=== PATIENT | male | born 1965 | race Caucasian/White ===

== ENCOUNTER → 2023-05-26 14:45 | Outpatient (REF) | payer BC, SELFPAY | LOC: HWRAD 14:45 | PROVIDERS: ATTENDING PHYSICIAN Internal Medicine Hematology & Oncology; FAMILY PHYSICIAN Family Medicine | DX: C81.92 Hodgkin lymphoma, unspecified, intrathoracic lymph nodes (principal); D68.00 Von Willebrand disease, unspecified; C44.91 Basal cell carcinoma of skin, unspecified; R79.1 Abnormal coagulation profile; Z85.71 Personal history of Hodgkin lymphoma | CPT/HCPCS: 70491; 71260; Q9967 ==

== ENCOUNTER 2023-06-23 06:08 | Day surgery (SDC) | payer BC, SELFPAY ==
[2023-06-23] VITALS (10 sets, daily range): BP systolic 113–134; BP diastolic 79–94; BMI 30.3
[2023-06-23 06:48] LABS: Hematocrit 37.4 % (39.0-52.0); Hemoglobin 13.2 g/dL (13.0-18.0); Mean Corp Hgb Conc. 35.3 g/dL (33.0-37.0); Mean Corpuscular Hgb 31.7 pg (27.0-31.0); Mean Corpuscular Volume 89.7 fL (80.0-94.0); Platelet Count 264 10^3/uL (130-400); Red Blood Cell Count 4.17 10^6/uL (4.70-6.10); White Blood Cell Count 6.7 10^3/uL (4.8-10.8)
[2023-06-23] MEDS: NSS 304 ML IV (06:58)
[2023-06-23 07:05] LABS: ALT (SGPT) 21 U/L (0-50); AST (SGOT) 23 U/L (17-59); Albumin 4.2 g/dl (3.5-5.0); Alkaline Phosphatase 62 U/L (38-126); Blood Urea Nitrogen 19 mg/dl (9-20); Calcium 9.1 mg/dl (8.4-10.2); Carbon Dioxide 25 mmol/L (22-30); Chloride 109 mmol/L (98-107); Estimated Creatinine Clearance 113 ml/min; Glucose 104 mg/dl (70-99); Potassium 3.9 mmol/L (3.5-5.1); Sodium 139 mmol/L (135-145); Total Bilirubin 0.4 mg/dl (0.2-1.3); Total Protein 7.2 g/dl (6.3-8.2); eGFR > 60.00
[2023-06-23] MEDS: DDAVP 55 MCG IV (08:08)
--- NOTE | 2023-06-23 09:20 | ITS.CL.CATH ---
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
Cardiac Catheterization
Procedure Report:
LEFT HEART CATHETERIZATION
Date of Procedure: June 23, 2023
Referring: Dr. Angelo Bennett
PROCEDURES:
1. Left heart catheterization with coronary and single-plane left ventriculography
INDICATION: This is a 58-year-old gentleman with a complex past medical history. He tells me that approximately 19 years ago he was diagnosed with Hodgkin's lymphoma and received 3 cycles of ABVD chemotherapy and mantle radiation. He has a history
of of chronic hepatitis C and congenital von Willebrand's disease. He has known coronary artery disease and in September 2014 was referred for coronary angiography finding a 95% proximal LAD stenosis and tandem 90% and 80% mid RCA stenosis. He was seen
by CT surgery and felt to be a better candidate for PCI with bare metal stents to avoid tank terminal gauger dual antiplatelet therapy. He returned the following day for stenting of the LAD with a 3.5 x 12 mm Vision bare-metal stent and successful stenting of
the mid RCA with a 3.5 x 28 mm Vision stent. He had done well but reported feeling poorly and an increase dyspnea and neck discomfort while exercising. Symptoms have been present at least for 3-4 months but had significantly worsened over the past
2 months.
He had followed with Dr. Walker at [facility]. He requires DDAVP before invasive procedures.
ACCESS: Right radial artery, 6 Grenadian sheath
HEMODYNAMICS : (mmHg)
AO (s/d) : 119/81
LV (s/d) : 120/13
LVEDP : 19
CORONARY FINDINGS
DOMINANCE: Right
LEFT MAIN: Normal
LEFT ANTERIOR DESCENDING: The LAD arises normally from the left main. The stent in the mid LAD is widely patent with diffuse luminal irregularities including 60-65% mid LAD stenosis. The remainder of the LAD has a diffuse luminal irregularities
but no high-grade focal obstructive stenosis. The distal LAD wraps around the apex.
CIRCUMFLEX: The circumflex is a medium caliber nondominant vessel. There is a 50% proximal circumflex stenosis supplying a medium caliber OM1 and terminating in a medium caliber OM 2
RIGHT CORONARY ARTERY: The right coronary artery is occluded/subtotally occluded within the midportion of the previously placed stent. Sluggish antegrade flow is noted. Well-developed the left to right collaterals are also appreciated from the
circumflex and LAD
VENTRICULOGRAPHY: Left ventriculography was performed in an JOE projection. The digital single-plane left ventricular ejection fraction is estimated at 50-55%
RADIATION SUMMARY: Fluoro Time (min): 4.3, Dose (mGy): 275, DAP (Gy.cm2) : 30
Closure Device: TR band
CONCLUSIONS
1. Coronary artery disease with chronic total occlusion of the RCA collateralized left to right. Symptoms have significantly worsened (per family) over the past 2 months but had been present to some degree even longer. The LAD stent is patent
with moderate LAD disease beyond the stented segment.
2. Preserved left ventricular systolic function
3. Complex hematologic history:
Congenital von Willebrand's disease: DDAVP administered prior to catheterization at a dose of 0.3 mcg/kg over 20-30 min (max dose 20 mcg/dose)
Hodgkin's lymphoma s/p ABVD chemotherapy and XRT (details of mantle radiation are not known).
In the past he was felt to be high bleeding risk for chronic use of dual antiplatelet therapy. Bare metal stents were placed to minimize duration of dual antiplatelet therapy.
RECOMMENDATIONS
1. Will discuss with CT surgery to determine candidacy for surgical revascularization of the right coronary artery, left anterior descending, +/- circumflex / OM vs attempted PCI of the RCA with anticipated prolonged dual antiplatelet therapy for 6
or preferably 12 months given existing stent with treatment of restenotic lesion.
Copy to: Dr. Angelo Bennett
[2023-06-23] MEDS: NSS 1000 IV (09:25)
== END 2023-06-23 13:30 | disposition home or self-care (01) ==
LOC: CATH 06:08
PROVIDERS: ATTENDING PHYSICIAN Internal Medicine Interventional Cardiology; CONSULT PHYSICIAN Thoracic Surgery (Cardiothoracic Vascular Surgery); FAMILY PHYSICIAN Family Medicine; OTHER PHYSICIAN Internal Medicine Cardiovascular Disease
DX: C81.90 Hodgkin lymphoma, unspecified, unspecified site (principal); B18.2 Chronic viral hepatitis C; D68.00 Von Willebrand disease, unspecified; I25.82 Chronic total occlusion of coronary artery; Z95.5 Presence of coronary angioplasty implant and graft
CPT/HCPCS: 80053; 85027; 93306; 93458; C1894; J2597; Q9967

== ENCOUNTER → 2024-01-29 08:21 | Outpatient (REF) | payer BC, SELFPAY ==
[2024-01-29 10:32] LABS: Blood Urea Nitrogen 16 mg/dl (9-20); Calcium 9.6 mg/dl (8.4-10.2); Carbon Dioxide 28 mmol/L (22-30); Chloride 103 mmol/L (98-107); Glucose 100 mg/dl (70-99); Potassium 5.1 mmol/L (3.5-5.1); Sodium 139 mmol/L (135-145); eGFR > 60.00
[2024-01-29 10:58] LABS: PSA, Total - Screen 1.81 ng/ml (0.0-4.0)
== END ==
LOC: REG 08:21
PROVIDERS: ATTENDING PHYSICIAN Urology; FAMILY PHYSICIAN Family Medicine; OTHER PHYSICIAN Internal Medicine Hematology & Oncology
DX: R31.1 Benign essential microscopic hematuria (principal); Z80.42 Family history of malignant neoplasm of prostate; Z12.5 Encounter for screening for malignant neoplasm of prostate
CPT/HCPCS: 36415; 80048; G0103

== ENCOUNTER → 2024-04-20 08:23 | Outpatient (REF) | payer BC, SELFPAY ==
[2024-04-20 10:11] LABS: HDL Cholesterol 89 mg/dl; LDL Cholesterol, Calculated 61 mg/dl; Total Cholesterol 176 mg/dl (50-199); Triglyceride 132 mg/dl (10-149); Very Low Density Lipoprotein 26 mg/dl (0-30)
[2024-04-20 10:27] LABS: Free T4 0.78 ng/dl (0.78-2.19)
[2024-04-20 10:41] LABS: PSA, Total - Screen 1.86 ng/ml (0.0-4.0); TSH 3.28 uIU/ml (0.47-4.68)
== END ==
LOC: REG 08:23
PROVIDERS: ATTENDING PHYSICIAN Family Medicine; REFERRING PHYSICIAN Internal Medicine Hematology & Oncology
DX: E03.9 Hypothyroidism, unspecified (principal); E78.5 Hyperlipidemia, unspecified; N40.0 Benign prostatic hyperplasia without lower urinary tract symptoms
CPT/HCPCS: 36415; 80061; 84439; 84443; G0103

== ENCOUNTER 2024-10-27 20:31 | Observation (INO) | payer BC, SELFPAY ==
[2024-10-27] VITALS (10 sets, daily range): BP systolic 111–154; BP diastolic 79–104; PULSE 77–92; BMI 30.6; BMI 29.7
[2024-10-27 15:56] LABS: Hematocrit 39.9 % (39.0-52.0); Hemoglobin 13.2 g/dL (13.0-18.0); Mean Corp Hgb Conc. 33.1 g/dL (33.0-37.0); Mean Corpuscular Volume 92.1 fL (80.0-94.0); Nucleated Red Blood Cells % 0 % (-); Platelet Count 240 10^3/uL (130-400); Red Cell Dist. Width 13.2 % (11.5-14.5)
[2024-10-27 16:20] LABS: ALT (SGPT) 30 U/L (0-50); AST (SGOT) 29 U/L (17-59); Albumin 4.5 g/dl (3.5-5.0); Alkaline Phosphatase 60 U/L (38-126); Blood Urea Nitrogen 22 mg/dl (9-20); Calcium 9.0 mg/dl (8.4-10.2); Carbon Dioxide 25 mmol/L (22-30); Chloride 108 mmol/L (98-107); Estimated Creatinine Clearance > 125 ml/min; Glucose 90 mg/dl (70-99); Potassium 4.1 mmol/L (3.5-5.1); Sodium 135 mmol/L (135-145); Total Protein 7.4 g/dl (6.3-8.2); eGFR > 60.00
--- NOTE | 2024-10-27 18:06 | ED.GENMED ---
History of Present Illness
<Rosalva Fenton PA-C - Last Filed: 10/28/24 22:20>
General
Chief Complaint: Dizziness
Source: patient
Exam Limitations: none
Time Seen by Provider: 10/27/24 16:44
Nursing documentation reviewed up to this point in time: agreed with
History of Present Illness
History of Present Illness:
Patient is a 59-year-old male with history CAD, hyperlipidemia, hypothyroid who presents to the emergency department with acute onset dizziness which began at 11 AM today. Patient states he was sitting at his computer while at work when he had
acute onset dizziness, described as a sensation of movement. Symptoms seem to persist and he went out to his car to lay down while he felt that he was also quite off balance.
He denies any true spinning sensation however does report having a strong sensation of movement. He does not feel that symptoms were heavily exacerbated by movements of his head. He denies any associated headache, neck pain, visual changes,
numbness/tingling or weakness in extremities. He denies any difficulties talking or swallowing. He denies any lightheadedness. He denies any changes in his hearing.
Patient denies any recent trauma or inciting injury.
Patient has a significant cardiac history with 5 stents. No history of similar symptoms that he was experiencing today. However�his mom does have a history of vertigo.
Past History
<Rosalva Fenton PA-C - Last Filed: 10/28/24 22:20>
Past History
ED Past Medical History: CAD, Other (Von Willebrand's disease.), Other (Hepatitis C) and Other (Hodgkin's disease)
ED Past Surgical History: Other
Social History
Tobacco: Non-smoker
Alcohol: Occasional
Drug: None
Personal:
Living: with family
Employment: Employed
Family History
Family History: Other (Noncontributory)
Review of Systems
<Rosalva Fenton PA-C - Last Filed: 10/28/24 22:20>
Review of Systems
Allergies reviewed?: Yes
All Other Systems: ROS reviewed and negative except as documented in HPI and ROS
Phy Exam
<Rosalva Fenton PA-C - Last Filed: 10/28/24 22:20>
Physical Exam
Physical Exam:
Vitals: Hypertensive, otherwise vital signs stable. Afebrile
General: Patient is well appearing, no acute distress
Skin: Warm and dry, no rashes or lesions
Head: Normocephalic, atraumatic
Eyes: Sclera nonicteric. EOMs intact. No nystagmus.
Throat: Protecting airway
Neck: Normal ROM, no cervical spine tenderness, no meningismus
Cardiac: Regular rate and rhythm, no murmurs.
Pulm: Normal respiratory effort, no wheezes, rales, rhonchi heard on exam
Abdomen: Abdomen soft nontender.
Extremities: No evidence of cyanosis or edema. Strength 5/5 in bilateral upper and lower extremities. Sensation intact.
Neuro: AAOx3. CN II-XII grossly intact. No facial droop or asymmetry. Fluent speech. No focal neurologic deficits. Mildly unsteady gait.
Psychiatric: Normal affect.
Course
<Rosalva Fenton PA-C - Last Filed: 10/28/24 22:20>
Orders/Labs/Results
Orders:
Orders
10/27/24 14:29
EKG [Electrocardiogram (*1)] Urgent
Reason for Study: Vertigo / Dizzy
EKG- Treatment ONCE
10/27/24 15:50
CBC/With Diff [Complete Blood Count/With Diff] Urgent
Comprehensive Metabolic Panel Urgent
Glycohemoglobin (HgbA1c) Urgent
10/27/24 17:08
CT Head W/o Iv Contrast Urgent
Comment:
Reason For Exam: Dizziness, ataxia
0.9% Sodium Chloride 1000 ml [Nss] 1,000 ml IV BOLUS
10/27/24 17:36
Meclizine [Antivert] 12.5 mg PO NOW STA
10/27/24 20:03
Admit/Transfer Patient As Directed
Co-Sign Provider:
Level of Care: Observation services
Assign to:: Telemetry
Physician / Group: [email or web address]
Diagnosis: Abrupt onset dizziness and ataxia, eval for CVA/TIA
Reason for Telemetry: CVA/TIA
Date to Stop Telemetry: 10/30/24
Time to Stop Telemetry: 11:00
Reason for Hospitalization: Abrupt onset dizziness and ataxia.
10/27/24 20:04
Code Status As Directed
Resuscitation Status: Full Code
10/27/24 21:24
Acetaminophen [Tylenol/Feverall] 650 mg RECTAL Q4HPRN PRN
Acetaminophen [Tylenol] 650 mg PO Q4HPRN PRN
10/27/24 21:24
Case Management Consult ONCE
Case Management Consult: Discharge Planning
Comment: stroke/tia
DIETARY IP CONSULT Routine
Reason for Consult: stroke/TIA
NEUROLOGY CONSULT Urgent
Consulting Provider: Jules Castañeda
Was physician already notified: Yes
Reason for consult: Abrupt onset dizziness and ataxia.R/O CVA/TIA
Weed Thinner Urgent
Activity As Directed
Activity Level: With Assistance
NIH Stroke Scale As Directed
Directions: Per protocol
Comment: every shift and with any change in condition or mental status
Neurological Checks As Directed
Frequency: q4h
Additional Instructions:: q4h x 24h upon admission to the floor, then qshift & with any change in condition
and mental status
Orthostatic Vital Signs As Directed
Orthostatic VS Frequency: Daily
Comment: times two only
Patient Education As Directed
Type: Stroke education packet
Comment: provide to patient and family
Pneumatic Compression Sleeves As Directed
Type: Knee high
Vital Signs As Directed
Frequency: Per unit guidelines
Ot Eval And Treat Routine
Pt Eval And Treat Routine
Activity Level: With Assistance
Speech Therapy Eval & Treat Routine
DX Deep Vein Thrombosis Video Routine
10/28/24 07:03
Cardiovascular Evaluation IN AM
VerifyNow Aspirin IN AM
Pt on daily regimen OR been given initial dose of aspirin?: Yes
10/28/24 08:00
Aspirin Chewable [Low Strength Aspirin] 81 mg PO DAILY
10/28/24 15:50
Ferritin Urgent
Comment: ADD ON
Folate Urgent
Comment: ADD ON
TSH Reflex To Free T4 Urgent
Comment: ADD ON
Vitamin B12 Urgent
Comment: ADD ON
10/28/24 18:00
Atorvastatin [Lipitor] 40 mg PO QPM
10/30/24 11:00
DC Protocol for Telemetry ONCE
Abnormal Lab Results
10/27/24
15:50
RBC 4.33 L 10^6/uL
(4.70-6.10)
Absolute Monos (auto) 0.7 H 10^3/uL
(0.1-0.6)
Monocytes % 9.6 H %
(1.7-9.3)
Chloride 108 H mmol/L
(98-107)
BUN 22 H mg/dl
(9-20)
10/27/24 15:50
10/27/24 15:50
Vital Signs
Initial and Last Documented VS:
Initial Vital Signs
Temp Pulse Resp BP Pulse Ox
98.9 F 82 17 141/93 98
10/27/24 14:34 10/27/24 14:34 10/27/24 14:34 10/27/24 14:34 10/27/24 14:34
Last Documented Vital Signs
Temp Pulse Resp BP Pulse Ox
97.7 F 75 16 110/76 96
10/29/24 03:36 10/29/24 03:36 10/29/24 03:36 10/29/24 03:36 10/29/24 03:36
<Deep Dias MD - Last Filed: 10/29/24 07:56>
Orders/Labs/Results
Orders:
Orders
10/27/24 14:29
EKG [Electrocardiogram (*1)] Urgent
Reason for Study: Vertigo / Dizzy
EKG- Treatment ONCE
10/27/24 15:50
CBC/With Diff [Complete Blood Count/With Diff] Urgent
Comprehensive Metabolic Panel Urgent
Glycohemoglobin (HgbA1c) Urgent
10/27/24 17:08
CT Head W/o Iv Contrast Urgent
Comment:
Reason For Exam: Dizziness, ataxia
0.9% Sodium Chloride 1000 ml [Nss] 1,000 ml IV BOLUS
10/27/24 17:36
Meclizine [Antivert] 12.5 mg PO NOW STA
10/27/24 20:03
Admit/Transfer Patient As Directed
Co-Sign Provider:
Level of Care: Observation services
Assign to:: Telemetry
Physician / Group: [email or web address]
Diagnosis: Abrupt onset dizziness and ataxia, eval for CVA/TIA
Reason for Telemetry: CVA/TIA
Date to Stop Telemetry: 10/30/24
Time to Stop Telemetry: 11:00
Reason for Hospitalization: Abrupt onset dizziness and ataxia.
10/27/24 20:04
Code Status As Directed
Resuscitation Status: Full Code
10/27/24 21:24
Acetaminophen [Tylenol/Feverall] 650 mg RECTAL Q4HPRN PRN
Acetaminophen [Tylenol] 650 mg PO Q4HPRN PRN
10/27/24 21:24
Case Management Consult ONCE
Case Management Consult: Discharge Planning
Comment: stroke/tia
DIETARY IP CONSULT Routine
Reason for Consult: stroke/TIA
NEUROLOGY CONSULT Urgent
Consulting Provider: Jules Castañeda
Was physician already notified: Yes
Reason for consult: Abrupt onset dizziness and ataxia.R/O CVA/TIA
Weed Thinner Urgent
Activity As Directed
Activity Level: With Assistance
NIH Stroke Scale As Directed
Directions: Per protocol
Comment: every shift and with any change in condition or mental status
Neurological Checks As Directed
Frequency: q4h
Additional Instructions:: q4h x 24h upon admission to the floor, then qshift & with any change in condition
and mental status
Orthostatic Vital Signs As Directed
Orthostatic VS Frequency: Daily
Comment: times two only
Patient Education As Directed
Type: Stroke education packet
Comment: provide to patient and family
Pneumatic Compression Sleeves As Directed
Type: Knee high
Vital Signs As Directed
Frequency: Per unit guidelines
Ot Eval And Treat Routine
Pt Eval And Treat Routine
Activity Level: With Assistance
Speech Therapy Eval & Treat Routine
DX Deep Vein Thrombosis Video Routine
10/28/24 07:03
Cardiovascular Evaluation IN AM
VerifyNow Aspirin IN AM
Pt on daily regimen OR been given initial dose of aspirin?: Yes
10/28/24 08:00
Aspirin Chewable [Low Strength Aspirin] 81 mg PO DAILY
10/28/24 15:50
Ferritin Urgent
Comment: ADD ON
Folate Urgent
Comment: ADD ON
TSH Reflex To Free T4 Urgent
Comment: ADD ON
Vitamin B12 Urgent
Comment: ADD ON
10/28/24 18:00
Atorvastatin [Lipitor] 40 mg PO QPM
10/30/24 11:00
DC Protocol for Telemetry ONCE
Abnormal Lab Results
10/27/24
15:50
RBC 4.33 L 10^6/uL
(4.70-6.10)
Absolute Monos (auto) 0.7 H 10^3/uL
(0.1-0.6)
Monocytes % 9.6 H %
(1.7-9.3)
Chloride 108 H mmol/L
(98-107)
BUN 22 H mg/dl
(9-20)
10/27/24 15:50
10/27/24 15:50
Vital Signs
Initial and Last Documented VS:
Initial Vital Signs
Temp Pulse Resp BP Pulse Ox
98.9 F 82 17 141/93 98
10/27/24 14:34 10/27/24 14:34 10/27/24 14:34 10/27/24 14:34 10/27/24 14:34
Last Documented Vital Signs
Temp Pulse Resp BP Pulse Ox
97.7 F 75 16 110/76 96
10/29/24 03:36 10/29/24 03:36 10/29/24 03:36 10/29/24 03:36 10/29/24 03:36
<Rosalva Fenton PA-C - Last Filed: 10/28/24 22:20>
MDM/Problems Addressed
Differential Diagnosis Includes:
Not limited to: BPPV, labyrinthitis, vestibular neuritis, M�ni�re's disease, CVA/TIA
MDM/Problems Addressed:
59-year-old male with significant cardiovascular disease w/ 5 stents who presents with acute onset dizziness and ataxia, which occurred earlier today while at work. There was no clear positional component. No episodes of vomiting. No other
neurological symptoms. No history of similar symptoms.
Symptoms minimally resolved by arrival to ED/my evaluation although still feels �off�.
Vitals and physical exam as above.
Basic labs were sent prior to my evaluation without any clinically significant abnormalities.
Differential broad and includes peripheral vertigo causes including BPPV, labyrinthitis, Meniere's disease vs central etiology of vertigo such as CVA/TIA.
Will treat with IV fluids and meclizine. We will check head CT and reassess.
Update: head CT without acute findings. On reassessment � patient reports some improvement however not complete improvement. At this point � cause of dizziness unknown. Possibly peripheral, however, not clearly positional and patient has significant
vascular risk factors� feel that this warrants inpatient management and further work up. Patient accepted to hospital service in stable condition.
Chronic conditions affecting care:
CAD w/ stents, remote history of lymphoma
Acute Exacerbation and/or Progression of Chronic Illness:
N/A
<Rosalva Fenton PA-C - Last Filed: 10/28/24 22:20>
*Radiology
Radiology exam reviewed: preliminary read by ED provider (Head CT reviewed by sd-no acute abnormalities) and radiology read reviewed
*Pulse Oximetry
SaO2: 99
Oxygen Mode of Delivery: Room air
Patient hypoxic: no
*EKG
Interpreted by ED Provider?: Yes
EKG Intrepretation Date: 10/27/24
Interpretation: normal
Comparison EKG: no changes
Heart Rate: 68
Rate: normal
Rhythm: sinus
[place]: normal axis
Interval: normal QT interval
QRS Pattern: normal QRS
Ischemia: no ischemia
*Film Waxer Interpretation
Rate: normal
Interpretation: normal
Heart Rate: 72
Rhythm: sinus
*Critical Care Note
Total Time (30-74mins, 75-104mins- exclusive of procedures): Not Applicable
ED Attending Note
<Rosalva Fenton PA-C - Last Filed: 10/28/24 22:20>
-
Portions of this chart may have been created with voice recognition software.� Occasional wrong word or��sound alike� substitutions may have occurred due to the inherent limitations of voice recognition software.
<Deep Dias MD - Last Filed: 10/29/24 07:56>
ED Attending Note
Patient seen and examined by attending physician: Yes
I performed the substantive portion of visit, reviewed & personally made and approve the management plan that is documented in note by myself or LANRE.: Yes
ED Attending Note:
59-year-old male relatively sudden onset of disequilibrium while at work late this morning. No unusual headache no double vision blurry vision speech issues. Some trouble with his gait. No clear-cut positional component. History of CAD with 5
stents.
GENERAL: Alert and oriented in no apparent distress
EYE: Orbits normal. Extraocular muscles intact. No obvious nystagmus
NECK: Supple
LUNGS: No distress
NEUROLOGICAL: Alert and oriented , cranial nerves II through XII intact. Speech normal. [id number] normal. No drift.
SKIN: Warm and dry
PSYCH: Normal and appropriate interaction.
Patient describing relatively sudden onset of disequilibrium. Neurologic exam within normal limits. Has 5 stents. Clearly has risk factors for vascular disease. This may be a labyrinthitis or inner ear issue although with risk factors sudden
onset and no clear positional component along with some ongoing ataxia warrants inpatient workup
Discharge Plan
Departure
Patient Disposition: Admit
Date of Disposition: 10/27/24
Time of Disposition: 19:22
Presentation/result/management discussed w/ accepting MD/DO: Hospitalist
Discharge Problem:
Dizziness, Ataxia
Interventions
Interventions:
*Risk Screen - Suicide Last Done: 10/27/24 14:34
*General Assessment Last Done: 10/27/24 14:34
*Neglect/Abuse Screening Last Done: 10/27/24 14:34
*ED- Fall Risk Assessment Last Done: 10/27/24 14:34
*ED COVID-19 Vaccine History Last Done: 10/27/24 20:53
*Nursing Disposition Last Done: 10/27/24 21:40
ED- Neurological Assessment Last Done: 10/27/24 17:30
ED- Cardiac Assessment Last Done: 10/27/24 17:30
ED Swallowing Screen Last Done: 10/27/24 17:30
Discharge Date and Time
Discharge Date/Time: 10/27/24 21:25
[2024-10-27] MEDS: NSS 1000 IV (18:07)
[2024-10-27] MEDS: ANTIVERT 12.5 MG PO (18:07)
--- NOTE | 2024-10-27 19:58 | HPS.HSE ---
Family Physician
-
Family Physician: Bj Morton
Chief Complaint
-
dizziness and ataxia.
History of Present Illness
HPI
59M HX CAD, s/p PTCA and stenting RCA and LAD . LVEF 45% , VWB dz , Hep C, Hodgekins Lymphoma seen at ER:
- For evalaution of sudden onset dizziness and ataxia. Symptoms started acutely at 11 AM
- not clearly associated with position
- Incomplete improvement w/ meclizine and IVF in ED.
- Labs OK.
- CT head negative.
- Significant vascular risk factors w/ CAD and 5 stents.
Medical History
Past Medical History
Past Medical History: Reports CAD (Status post angioplasty with bare-metal stenting to the right coronary and left anterior descending arteries.), Cancer ( Hodgkin's disease.), CHF (Mild LV dysfunction with EF of 45%.), Hypercholesterolemia and
Other (Hepatitis C.)
Past Surgical History: Reports Cardiac (Status post angioplasty with bare-metal stenting to the right coronary and left anterior descending arteries.)
Social History
Tobacco: Non-smoker
Alcohol: None
Family History
Family History: Not pertinent
Allergies / Home Medications
Allergies reflects when Allergies were last updated in [facility].
Home Medications with original date entered in [facility]
Allergy/Medication List:
Allergies
Allergy/AdvReac Type Severity Reaction Status Date / Time
No Known Allergies Allergy Verified 10/27/24 14:36
Home Medications
levothyroxine 50 mcg tablet 50 mcg PO DAILY 10/30/15
multivitamin with folic acid 400 mcg tablet (Tab-A-Louisa) 1 tab PO DAILY 10/30/15
aspirin 81 mg tablet,delayed release 81 mg PO DAILY 11/02/15
atorvastatin 40 mg tablet 40 mg PO HS #30 tabs 04/09/23
carvedilol 12.5 mg tablet 12.5 mg PO BID #60 tabs 04/09/23
nitroglycerin 0.4 mg sublingual tablet 0.4 mg sublingual Q5M PRN chest pain #25 tabs 06/23/23
If Other, explain: Pending Rx reconciliation
Review of Systems
-
Constitutional: Reports No Symptoms
EENT: Reports No Symptoms
Respiratory: Reports No Symptoms
Cardiac: Reports No Symptoms
Abdomen/GI: Reports No Symptoms
: Reports No Symptoms
Musculoskeletal: Reports No Symptoms
Skin: Reports No Symptoms
Neurological: Reports See HPI and Dizzy
Endocrine: Reports No Symptoms
Hematologic/Lymphatic: Reports No Symptoms
Psych: Reports No Symptoms
Physical Exam
Vital Signs
Vital Signs
Temp Pulse Resp BP Pulse Ox
98.9 F 71 19 147/93 98
10/27/24 14:34 10/27/24 19:15 10/27/24 19:15 10/27/24 19:00 10/27/24 19:00
Physical Exam
General: Well Developed, Well Nourished and No Apparent Distress
HEENT: NormoCephalic, Moist mucous membranes and Atraumatic
Respiratory: Clear
Cardiac: S1/S2 and Regular Rhythm; No Murmur or Rub
GI: Soft, Non Tender, Non Distended and Normal Bowel Sounds; No Organomegaly
Rectal: Deferred by Provider
Musculoskeletal: No Clubbing, No Cyanosis and No Edema
Skin: No Rash
Neuro: Nonfocal/grossly intact
Laboratory Results
-
10/27/24 15:50
10/27/24 15:50
Laboratory Results
Total Bilirubin 0.7 mg/dl (0.2-1.3) 10/27/24 15:50
AST 29 U/L (17-59) 10/27/24 15:50
ALT 30 U/L (0-50) 10/27/24 15:50
Alkaline Phosphatase 60 U/L (38-126) 10/27/24 15:50
Data Reviewed
-
CT Scan: Report Reviewed by me
Medical Tests (Nuc Med, Echo, EKG etc): Report Reviewed by me
Lab Data: Labs Reviewed by me
Impression/Plan
-
Relevant data
Unremarkable CBC and CMP
CT Head W/o Iv Contrast
- No acute intracranial abnormality noted.
EKG
NORMAL SINUS RHYTHM
NORMAL ECG
WHEN COMPARED WITH ECG OF 09-APR-2023 10:17,
NO SIGNIFICANT CHANGE WAS FOUND
Confirmed by AVE GUTIÉRREZ MD ([id number]) on 10/27/2024 5:22:49 PM
Last hospitalist admission: in 2015
ASSESSMENT & PLAN
Pending Rx reconciliation
Abrupt onset dizziness and ataxia.
- Onset at 11 AM Labs
- Not clearly positional
- Incomplete improvement w/ meclizine and IVF in ED.
- NEG HCT
- POS significant vascular risk factors w/ CAD and 5 stents.
- MRI Brain and H & N MRA to rule out CVA.
- if any abnormal MRI , to consider Neuro consult
PMHX: Pending Rx reconciliation
Coronary artery disease with new exertional chest pain and dyspnea on exertion.
Status post angioplasty with bare-metal stenting to the right coronary and left anterior descending arteries.
HX Mild LV dysfunction with EF of 45%.on HONEY EXTRACTOR Carvedilol ?
Hypothyroid on HONEY EXTRACTOR LT4 ?
HX Von Willebrand's disease.
HX Dyslipidemia.
HX Hepatitis C.
HX Hodgkin's disease.
DVT Px: LMWH
Full code
OBS TLM
[2024-10-27] MEDS: TYLENOL 650 MG PO (21:42)
--- NOTE | 2024-10-27 23:15 | TRANSFER ---
Pt received from ED to room 405-1. Pt able to walk from stretcher to bed with no assistance. AAOx3. VSS. Pt oriented to room. Call alejandro within reach.
[2024-10-28] VITALS (7 sets, daily range): BP systolic 101–144; BP diastolic 69–94; PULSE 70–99; O2SAT 98; BMI 29.3
[2024-10-28 07:59] LABS: HDL Cholesterol 55 mg/dl; LDL Cholesterol, Calculated 85 mg/dl; Very Low Density Lipoprotein 26 mg/dl (0-30)
[2024-10-28] MEDS: LOW STRENGTH ASPIRIN 81 MG PO (08:20)
--- NOTE | 2024-10-28 08:20 | W.PN.HOSP.TC ---
Today's Communication/Plan
-
await mri brain
neuro recs
cont asa/statin.
statin dose increased
Assessment / Plan
Assessment / Plan
Abrupt onset dizziness and ataxia likely secondary to TIA versus rule out CVA versus BPPV versus neuritis vestibular
- NEG HCT
- POS significant vascular risk factors w/ CAD and 5 stents.
- MRI Brain w/wo contrast per neurology
- PT/OT eval-home
- Currently symptoms completely resolved.
- appreciate neuro recs
Coronary artery disease
Status post angioplasty with bare-metal stenting to the right coronary and left anterior descending arteries.
HX Mild LV dysfunction with EF of 45%.
-Cont asa/statin.
Hypothyroid on [employer] LT4
HX Von Willebrand's disease.
HX Dyslipidemia.
HX Hepatitis C.
HX Hodgkin's disease.
DVT Px: LMWH
Full code
Anticipated Discharge: Within 24 hours
Subjective/Interval History
-
Date of Service: October 28, 2024
states his dizziness and ataxia resolved
worked with PT earlier today
Objective Data
-
Vital Signs:
Vital Signs
Temp Pulse Resp BP Pulse Ox
98.2 F 78 16 101/69 97
10/28/24 03:15 10/28/24 03:15 10/28/24 03:15 10/28/24 03:15 10/28/24 03:15
I&O
10/27/24 10/28/24 10/29/24
06:59 06:59 06:59
Intake Total 480 / 480
Balance 480 / 480
Physical Exam
-
General: Well Developed and No Apparent Distress
HEENT: Normocephalic, Atraumatic and Moist Mucous Membranes
Respiratory: Clear to Auscultation
Cardiac: Regular Rhythm and S1/S2; Negative Murmur, Rub or Gallop
GI: Soft, Nontender, Nondistended and Normal Bowel Sounds; Negative Organomegaly
Rectal: Deferred by Provider
Musculoskeletal: No Clubbing, No Cyanosis and No Edema
Skin: Negative Rash
Neuro: Awake, AO x 3, No Motor Deficits and Nonfocal/Grossly Intact
Psych: Calm
[2024-10-28] MEDS: COREG 6.25 MG PO ×2 (08:49→20:50)
[2024-10-28] MEDS: SYNTHROID 50 MCG PO (08:49)
[2024-10-28 09:01] LABS: VerifyNow Aspirin 402 ARU
--- NOTE | 2024-10-28 09:32 | PTOTSP ---
pt currently requires no assistance to complete smiple ADLs, functional transfers, ambulation. no overt deficits noted, pt oriented, follows direction without difficulty and demonstrates good insight. no acute OT needs identified, will sign off.
--- NOTE | 2024-10-28 09:35 | CON.NEURO4 ---
Addendum entered and electronically signed by Jules Castañeda MD 10/28/24 13:57:
Studies reviewed.
I have personally examined the patient. I reviewed and agree with the FRONT DESK WORKER's Note.
My addenda:
Awake, alert, interactive. No acute distress.
Speech intact.
Follows 2-step requests w/o difficulty. No tremor.
Extra-ocular movements grossly intact.
Facial movements full and symmetric. Hearing intact to normal conversational volume.
Normal UE movements bilaterally.
Neck: full ROM.
Chest: no dyspnea
Heart: no JVD
Ext: (-) Clubbing, (-) Cyanosis, (-) Edema
IMPRESSIONS/RECOMMENDATIONS:
Abrupt onset of vertigo with 2-hour delay prior to headache onset. This makes the likelihood of a migraine with aura less likely as migraine is by definition meant to take place 1 hour after onset of aura-type symptoms.
Differential diagnosis does include stroke based on the patient's history of coronary artery disease alone but not by examination or other historical features
Check MRI of brain as planned
Initiate iron by IV, provide ferrous sulfate at bedtime
Continue aspirin which shows efficacy by blood work
Consider addition of clopidogrel if MRI does demonstrate acute ischemic stroke for a 21-day period
Provide prochlorperazine for the patient's headache
Check MRA head and neck to ensure no intracranial stenosis
D/W patient / family
Will continue to follow pending results.
Original Note:
Documented by User: Vikki Camargo NP 10/28/24 12:34
Consultation - Neurology 4
-
CONSULTING PHYSICIAN: Jules Castañeda MD
REFERRING PHYSICIAN: Hospitalists/Dr. Knowles
DICTATED BY: OUSMANE Jackson
DATE/TIME OF REQUEST: 10/27/24
DATE/TIME OF CONSULTATION: 10/28/24
Reason for Consultation: Dizziness
History of Present Illness:
This is a 59-year-old right-handed male who has presented to the hospital on 10/27/24 with report of dizziness. Patient reports that he was sitting at his desk working yesterday morning (10/27/24) at 1100 when he suddenly developed a dizzy sensation
which he describes as feeling like he was moving, not spinning. He attempted to walk out to his car to lay down and his gait was off-balance. He also notes having difficulty focusing his vision. He notes having a pressure sensation change in his
ears yesterday but denies hearing loss/tinnitus. He reports having nausea but denies vomiting. About 2 hours after symptom onset, he notes that he developed a slight headache which he describes as a fullness on the right side of his head. This was a
3/10 discomfort. His symptoms persisted, prompting him to have someone drive him to the ER for evaluation. CT head was obtained on arrival and is negative for any acute abnormalities. Today (10/28/24), he reports feeling back to his baseline except
for a mild posterior 2/10 dull headache. He denies any vision changes, speech/swallow difficulty, numbness, and weakness. He notes having a very mild headache about once a week at baseline, never associated with photo/phonophobia, nausea, or vision
changes. He denies any history of vertigo, stroke, or similar events in the past. He is taking aspirin 81mg daily.
Past Medical History: Hodgkin lymphoma s/p chemo/xrt, Von Willebrand disease, CAD, hepatitis C, CHF, gallstones, kidney stones, hypothyroidism, HLD
Surgical History: Appendectomy, b/l hernia repair, cholecystectomy, cardiac cath, cardiac stents
Family History: Reviewed and noncontributory.
Social History: Occasional alcohol. Denies tobacco and illicit drug use.
Allergies: No known allergies.
Home Medications: See below.
Review of Symptoms:
Patient denies any fever, chest pain, shortness of breath, GI or symptoms.
�Per the HPI.�All systems are reviewed negative except above.
Physical Exam:
The patient is afebrile, abdomen is nondistended, breathing is unlabored, skin is warm and dry, no edema.
NIH Stroke Scale:
I performed the NIH stroke scale on the patient on 10/28/24 at 0945. The patient scored 0 points on the NIH stroke scale assessment, which were assigned as follows: See below.
Neurologic Examination:
The patient is awake, alert and oriented x 3. He is able to follow commands and answer questions appropriately. There is no aphasia or dysarthria. On cranial nerve assessment, pupils are 3 mm bilateral, round and reactive to light and
accommodation. Visual dutta are full. Extraocular movements are intact. Facial sensations are intact and bilaterally symmetrical, there is no facial asymmetry. Hearing is intact bilaterally to normal conversation volume. Tongue palate and uvula are
midline. Sternocleidomastoid strengths are full bilaterally. Motor strengths are 5/5 bilateral upper and lower extremities on medical research Odd scale. There is no drift or involuntary movement noted. Deep tendon reflexes are 2+ bilateral
upper and lower extremities and Babinski is absent bilaterally. There was no extinction noted on double simultaneous stimulation. Coordination is intact by finger to nose bilaterally. Head impulse test is positive bilaterally.
Lab Results: See below.
Neuro Imaging:
1. CT Head 10/27/24: No acute intracranial abnormality noted.
Differentials for the patient's presentation include:
1. Transient dizziness; unclear etiology, possibly a vertigo syndrome, vertiginous migraine, vs small stroke/TIA/structural brain abnormality possible.
2. Aspirin efficacy testing demonstrates efficacy.
3. Ferritin level is low at 32.
Patient has the following risk factors for their symptoms: HTN, HLD
Recommendations:
-MRI brain w/ and w/o contrast, MRA head/neck pending.
-Continue aspirin 81mg daily as efficacy testing shows it is effective in this patient.
-Goal normotension.
-Consider ferrous sulfate 325mg daily supplement for low ferritin level.
-LDL goal <70. LDL is 85. Home atorvastatin 40mg increased to 80mg daily.
-Goal normoglycemia, hbA1c is pending.
-NIHSS and neurological checks per unit guidelines.
-Provide patient with a stroke education packet.
-Physical therapy evaluations.
-DVT prophylaxis.
Discussed patient care with: Dr. Castañeda, the patient
Vital Signs and Labs
-
Vital Signs and Labs:
Vital Signs
Temp Pulse Resp BP Pulse Ox
97.7 F 80 16 124/80 98
10/28/24 08:00 10/28/24 08:49 10/28/24 08:00 10/28/24 08:49 10/28/24 08:00
Lab Results
10/27/24 15:50
10/27/24 15:50
Sodium 135 mmol/L (135-145) 10/27/24 15:50
Potassium 4.1 mmol/L (3.5-5.1) 10/27/24 15:50
BUN 22 mg/dl (9-20) H 10/27/24 15:50
Glucose 90 mg/dl (70-99) 10/27/24 15:50
Calcium 9.0 mg/dl (8.4-10.2) 10/27/24 15:50
LDL Cholesterol, Calc 85 mg/dl 10/28/24 07:03
Medications
-
Active Medications
Generic Name Dose Route Start Last Admin
Trade Name Freq PRN Reason Stop Dose Admin
Acetaminophen 650 mg 10/27/24 21:24
Acetaminophen 650 Mg Rectal Suppository RECTAL 11/24/24 21:23
Q4HPRN PRN
HOPKINS, mild pain, or temp >100.4F
Acetaminophen 650 mg 10/27/24 21:24 10/27/24 21:42
Acetaminophen 325 Mg Tablet PO 11/24/24 21:23 650 mg
Q4HPRN PRN Administration
HOPKINS, mild pain, or temp >100.4F
Aspirin 81 mg 10/28/24 08:00 10/28/24 08:20
Aspirin 81 Mg Chewable Tablet PO 11/25/24 07:59 81 mg
DAILY KRISTIN Administration
Atorvastatin Calcium 40 mg 10/28/24 18:00
Atorvastatin (Lipitor) 40 Mg Tablet PO 11/25/24 17:59
QPM KRISTIN
Carvedilol 6.25 mg 10/28/24 09:00 10/28/24 08:49
Carvedilol 6.25 Mg Tablet PO 11/25/24 08:59 6.25 mg
BID KRISTIN Administration
Levothyroxine Sodium 50 mcg 10/29/24 08:00
Levothyroxine 50 Mcg Tablet PO 11/26/24 07:59
DAILY@0600 KRISTIN
Sodium Chloride 0 flush 10/27/24 22:00
Sodium Chloride 0.9% (Flush) Syringe IV 11/24/24 21:59
PER PROTOCOL KRISTIN
Home Medications
�Medication �Instructions �Recorded
levothyroxine 50 mcg tablet 50 mcg PO DAILY 10/30/15
multivitamin with folic acid 400 1 tab PO NOON 10/30/15
mcg tablet (Tab-A-Louisa)
atorvastatin 40 mg tablet 40 mg PO HS #30 tabs 04/09/23
Fish Oil 1 cap PO NOON 10/27/24
aspirin 81 mg tablet,delayed 81 mg PO HS 10/27/24
release
carvedilol 6.25 mg tablet 6.25 mg PO BID 10/27/24
ibuprofen 200 mg tablet (Advil) 200 mg PO BIDPRN PRN mild pain 10/27/24
milk thistle 1 tab PO NOON 10/27/24
NIH Stroke Score
Subsequent NIH Scale
Date of Subsequent NIH Scale: 10/28/24
Time of Subsequent NIH Scale: 09:45
NIH Stroke Score
Level of Consciousness: 0 - Alert
LOC Questions: 0-Answers both correctly
LOC Commands: 0-Performs both correctly
Best Horizontal Gaze: 0-Normal
Visual Dutta: 0=Normal, no visual loss
Facial Palsy: 0=Normal, symmetrical
Motor - Right Arm: 0=No drift 10 seconds
Motor - Left Arm: 0=No drift 10 seconds
Motor - Right Le-No drift 5 seconds
Motor - Left Le-No drift 5 seconds
Limb Ataxia: 0-Absent
Sensation: 0-Normal
Best Language: 0-No aphasia
Dysarthria: 0-Normal
Extinction and Inattention: 0-No abnormality
NIH Total Score:: 0

Documented by User: Jules Castañeda MD 10/28/24 13:49
NIH Stroke Score
NIH Stroke Score
NIH Total Score:: 0
[2024-10-28] MEDS: TYLENOL 650 MG PO (10:20)
[2024-10-28] MEDS: COMPAZINE 10 MG PO (10:21)
[2024-10-28 11:33] LABS: Ferritin 32.9 ng/ml (17.9-464.0)
[2024-10-28 12:05] LABS: Folate > 20.0 ng/ml (2.76-20); Vitamin B12 623 pg/ml (239-931)
[2024-10-28 12:10] LABS: Glycohemoglobin (HgbA1c) 5.4 % (4.0-5.6)
--- NOTE | 2024-10-28 17:51 | CM ---
custodian manager reviewed patient's chart and met with patient and patient lives with his spouse in a 2 story home, patient is independent with adl's and ambulation, no dme, patient drives home when stable no needs.
PCP: Dr. Morton
Pharmacy: [facility]
Plan; Home no needs when stable.
[2024-10-28] MEDS: LIPITOR 80 MG PO (18:13)
[2024-10-28] MEDS: ATIVAN 1 MG PO (19:42)
[2024-10-29 03:36] VITALS: BP 110/76
[2024-10-29 07:30] VITALS: BP 132/91; BP 133/86; BP 140/95; PULSE 75; PULSE 84; PULSE 97
[2024-10-29] MEDS: SYNTHROID 50 MCG PO (08:41)
[2024-10-29] MEDS: COREG 6.25 MG PO (08:41)
[2024-10-29] MEDS: LOW STRENGTH ASPIRIN 81 MG PO (08:41)
[2024-10-29 11:18] VITALS: BP 134/84
--- NOTE | 2024-10-29 12:35 | W.PN.HOSP.TC ---
Today's Communication/Plan
-
DC
Assessment / Plan
Assessment / Plan
59yo M with PMHx of CAD s/p multiple PCI, HFmrEF, HTN, hypothyroidism came with transient blurry vision with vertigo, lasted appr 4 hors. MRI brain without new stroke, MRA without clinically significant cardotid stenosis. Telemetry with no
clinically significant arrhythmia. Neurology suggested possible migraine. Symptoms did not re-occur during hospital stay.
A/P:
#Vertigo, dizziness
CVA ruled out, TIA sytill possible
no further medications adjustment as pr neurology
ENT recommended as outpatient
#CAD, stable
s/p PCI
compliant with meds and has no chest pain
cont to follow with outpatient cardiology
Echo showed improvement in EF
#Essential HTN
#Hypothyroidism
TSH WNL
cont home meds
DVT ppx SCDs
Full code
I have spent at least 55min reviewing chart, test results, communication with consultants and providing direct patient care
Anticipated Discharge: Within 24 hours
Subjective/Interval History
-
Date of Service: October 29, 2024
Objective Data
-
Vital Signs:
Vital Signs
Temp Pulse Resp BP Pulse Ox
97.3 F 68 18 134/84 98
10/29/24 11:18 10/29/24 11:18 10/29/24 11:18 10/29/24 11:18 10/29/24 11:18
I&O
10/28/24 10/29/24 10/30/24
06:59 06:59 06:59
Intake Total 480 / 480 420 / 420
Balance 480 / 480 420 / 420
Review of Systems
-
History Source: Patient
All other systems: Reviewed and negative
Physical Exam
-
General: No Apparent Distress
Neuro: Awake, Alert, Oriented and AO x 3
Psych: Calm
--- NOTE | 2024-10-29 13:55 | W.DCSUMMARY ---
Discharge Summary
Discharge Data
Date of Admission: 10/27/24
Date of Discharge: 10/29/24
-
Pending Results: No
Hospital Course
59yo M with PMHx of CAD s/p multiple PCI, HFmrEF, HTN, hypothyroidism came with transient blurry vision with vertigo, lasted appr 4 hors. MRI brain without new stroke, MRA without clinically significant cardotid stenosis. Telemetry with no
clinically significant arrhythmia. Neurology suggested possible migraine. Symptoms did not re-occur during hospital stay.
I have spent at least 55min reviewing chart, test results, communication with consultants and providing direct patient care
Patietn was managed for:
#Vertigo, dizziness
#CAD, stable
#Essential HTN
#Hypothyroidism
Discharge Plan
-
Patient Disposition: Home (Routine Discharge)
Discharge Diagnosis/Procedures: Ataxia and dizziness
Condition: Fair
Activity: As tolerated
Driving Restrictions: As prior to admission
Referrals:
Jules Castañeda MD [Active, Neurology] - in two to four weeks
Bj Morton MD [Family Provider, Family Practice] - in less than 1 week
Hossein Cat MD [Active, Otology] - in two to three weeks
Referral Note: Vertigo
Prescriptions:
New
atorvastatin 80 mg Tablet
80 mg PO QPM 30 Days Qty: 30 0RF
Continued
levothyroxine 50 MCG tablet
50 mcg PO DAILY
multivitamin with folic acid [Tab-A-Louisa] 1 TABLET tablet
1 tab PO NOON
carvedilol 6.25 mg Tablet
6.25 mg PO BID
ibuprofen [Advil] 200 mg Tablet
200 mg PO BIDPRN PRN (Reason: mild pain)
Fish Oil
1 cap PO NOON
milk thistle
1 tab PO NOON
aspirin 81 MG tablet,delayed release (DR/EC)
81 mg PO HS
Discontinued
atorvastatin 40 mg tablet
40 mg PO HS Qty: 30 0RF
Discharge Orders:
Discharge Patient (As Directed); Ordered 10/29/24
Ordered By: Bulmaro Oconnell
Discharge Date and Time
Print Language: CHINESE
[2024-10-29 15:29] VITALS: BP 127/84
== END 2024-10-29 15:33 | disposition home or self-care (01) ==
LOC: 4 EAST ACU 20:31
PROVIDERS: ADMITTING PHYSICIAN Internal Medicine; ATTENDING PHYSICIAN Internal Medicine; CONSULT PHYSICIAN Psychiatry & Neurology Neurology; EMERGENCY PHYSICIAN Emergency Medicine; FAMILY PHYSICIAN Family Medicine
DX: R42 Dizziness and giddiness (principal); I25.10 Atherosclerotic heart disease of native coronary artery without angina pectoris; I11.0 Hypertensive heart disease with heart failure; E03.9 Hypothyroidism, unspecified; Z95.5 Presence of coronary angioplasty implant and graft; Z85.71 Personal history of Hodgkin lymphoma; E78.00 Pure hypercholesterolemia, unspecified; Z79.82 Long term (current) use of aspirin; D68.00 Von Willebrand disease, unspecified; B19.20 Unspecified viral hepatitis C without hepatic coma; H53.8 Other visual disturbances; I50.22 Chronic systolic (congestive) heart failure
CPT/HCPCS: 70450; 70544; 70548; 70553; 80053; 80061; 82607; 82728; 82746; 83036; 84443; 85025; 85576; 85652; 93005; 93306; 96360; 97162; 97166; 99285; A9585; G0378; J1240

== ENCOUNTER → 2024-12-22 09:48 | Outpatient (REF) | payer BC, SELFPAY ==
[2024-12-22 10:55] LABS: Blood Urea Nitrogen 17 mg/dl (9-20); Calcium 9.8 mg/dl (8.4-10.2); Carbon Dioxide 29 mmol/L (22-30); Chloride 104 mmol/L (98-107); Glucose 104 mg/dl (70-99); Potassium 4.6 mmol/L (3.5-5.1); Sodium 138 mmol/L (135-145); eGFR > 60.00
[2024-12-22 11:24] LABS: PSA, Total - Diagnostic 2.26 ng/ml (0.0-4.0)
== END ==
LOC: REG 09:48
PROVIDERS: ATTENDING PHYSICIAN Urology; FAMILY PHYSICIAN Family Medicine
DX: R31.1 Benign essential microscopic hematuria (principal); Z12.5 Encounter for screening for malignant neoplasm of prostate; Z80.42 Family history of malignant neoplasm of prostate
CPT/HCPCS: 36415; 80048; 84153

== ENCOUNTER → 2025-04-11 11:06 | Outpatient (REF) | payer BC, SELFPAY ==
[2025-04-11 12:05] LABS: Hematocrit 42.0 % (39.0-52.0); Hemoglobin 14.3 g/dL (13.0-18.0); Mean Corp Hgb Conc. 34.0 g/dL (33.0-37.0); Mean Corpuscular Volume 90.9 fL (80.0-94.0); Nucleated Red Blood Cells % 0 % (-); Platelet Count 262 10^3/uL (130-400); Red Cell Dist. Width 13.2 % (11.5-14.5)
[2025-04-11 12:14] LABS: INR 0.97; PT 13.0 Sec (11.4-14.6)
[2025-04-11 12:15] LABS: APTT 31.1 Sec (23.4-35.0)
[2025-04-11 12:31] LABS: ALT (SGPT) 25 U/L (0-50); AST (SGOT) 24 U/L (17-59); Albumin 4.4 g/dl (3.5-5.0); Alkaline Phosphatase 60 U/L (38-126); Blood Urea Nitrogen 17 mg/dl (9-20); Calcium 9.3 mg/dl (8.4-10.2); Carbon Dioxide 24 mmol/L (22-30); Chloride 106 mmol/L (98-107); Glucose 90 mg/dl (70-99); HDL Cholesterol 70 mg/dl; Iron 143 ug/dl (49-181); LDH 177 U/L (120-246); LDL Cholesterol, Calculated 119 mg/dl; Potassium 4.2 mmol/L (3.5-5.1); Sodium 137 mmol/L (135-145); Total Protein 7.6 g/dl (6.3-8.2); Very Low Density Lipoprotein 21 mg/dl (0-30); eGFR > 60.00
[2025-04-11 12:37] LABS: C-Reactive Protein < 5.00 mg/L (0.0-10.00)
[2025-04-11 12:40] LABS: Total Iron Binding Capacity 408 ug/dl (261-462)
[2025-04-11 13:12] LABS: Ferritin 38.4 ng/ml (17.9-464.0)
[2025-04-11 13:43] LABS: Folate 14.1 ng/ml (2.76-20); Vitamin B12 667 pg/ml (239-931)
[2025-04-12 15:36] LABS: Source Blood
[2025-04-13 09:13] LABS: Albumin 4.13 g/dL (3.75-5.01); Free Kappa Light Chains,Quant 13.40 mg/L (3.30-19.40); Free Lambda Light Chains,Quant 9.37 mg/L (5.71-26.30); Immunofixation Electrophoresis IFE Done; Kappa/Lambda Fr Light Ratio 1.43 (0.26-1.65); Total Protein-Electrophoresis 7.1 g/dL (6.3-8.2)
== END ==
LOC: REG 11:06
PROVIDERS: ATTENDING PHYSICIAN Internal Medicine Hematology & Oncology; OTHER PHYSICIAN Internal Medicine Cardiovascular Disease; OTHER PHYSICIAN Registered Nurse Critical Care Medicine
DX: C44.91 Basal cell carcinoma of skin, unspecified (principal); R79.1 Abnormal coagulation profile; E78.5 Hyperlipidemia, unspecified; Z23 Encounter for immunization; Z85.71 Personal history of Hodgkin lymphoma; R06.09 Other forms of dyspnea; D66 Hereditary factor VIII deficiency; D53.9 Nutritional anemia, unspecified; I25.110 Atherosclerotic heart disease of native coronary artery with unstable angina pectoris; R79.0 Abnormal level of blood mineral
CPT/HCPCS: 36415; 80053; 80061; 82607; 82728; 82746; 82784; 83521; 83540; 83550; 83615; 84155; 84165; 85025; 85610; 85652; 85730; 86140; 86334